=== PATIENT | female | born 1945 | race Caucasian/White ===

== ENCOUNTER 2022-06-06 14:37 | Inpatient (IN) | payer MEDICARE ==
[~2022-06-06 14:37] MED LIST: Iopamidol 370 76% 100 ML VIAL ONE
[2022-06-06 15:18] LABS: #Eosinphils 0.1 10x3/uL (0.0-0.5); #Monocytes 0.5 10x3/uL (0.0-1.1); #Neutrophils 5.8 10x3/uL (1.5-8.4); %Basophils 0.3 % (0.0-2.0); %Eosinophils 0.7 % (0.0-6.0); %Monocytes 6.5 % (0.0-10.0); %Neutrophils 79.1 % (40.0-75.0); Hemoglobin 11.4 g/dL (12.0-15.5); Mean Corpuscular HGB CONC 32.1 g/dL (32.0-36.0); Mean Corpuscular Hemoglobin 30.8 pg (27.0-33.0); Mean Corpuscular Volume 95.9 fl (81.6-98.3); Mean Platelet Volume 10.8 fl (7.4-10.4); Platelet Count 247 10x3/uL (150-450); RBC Distribution Width 14.9 % (11.5-14.5); White Blood Cell (WBC) Count 7.4 10x3/uL (3.5-10.5)
[2022-06-06 15:36] LABS: ALT (SGPT) 16 U/L (8-55); AST (SGOT) 29 U/L (5-34); Albumin 4.4 g/dL (3.4-4.8); Alkaline Phosphatase 108 U/L (40-110); Anion Gap 16 mmol/L (10-20); BUN (Urea Nitrogen) 23 mg/dL (9.8-20.1); Bilirubin, Total 0.2 mg/dL (0.2-1.2); Calc. Creatinine Clearance 0 mL/min (70-130); Calcium 9.2 mg/dL (7.8-10.44); Carbon Dioxide 24 mmol/L (23-31); Chloride 105 mmol/L (98-107); Estimated GFR 34; Globulin 3.4 g/dL (2.4-3.5); Glucose 118 mg/dL (83-110); Potassium 4.5 mmol/L (3.5-5.1); Protein, Total 7.8 g/dL (5.8-8.1); Sodium 140 mmol/L (136-145)
[2022-06-06 15:59] LABS: CKMB 0.9 ng/mL (0-6.6)
[2022-06-06] MEDS ORDERED: Aspirin Chewable 81 MG TAB ONE (17:20)
[2022-06-06] MEDS ORDERED: Acetaminophen 325 MG TAB ONE (20:04)
[2022-06-06] MEDS ORDERED: Calcium Carbonate 500 MG ChewTAB PO PRN (20:51)
[2022-06-06] MEDS ORDERED: Guaifenesin DM 100-10/5 ML UDCUP PO PRN (20:51)
[2022-06-06] MEDS ORDERED: Senokot S 8.6-50 MG TAB PO PRN (20:51)
[2022-06-06] MEDS ORDERED: Ondansetron PF 4 MG/2 ML Vial IVP PRN (20:51)
[2022-06-06] MEDS ORDERED: Piperacillin/Tazobactam 3.375 GM in Sodium Chloride 0.9% 100 ML IVPB SCH (21:00)
[2022-06-06 21:15] LABS: SARS-CoV-2 NAA Rapid Test Not Detected (NotDetected)
[2022-06-06 21:32] LABS: Bilirubin Neg (Negative); Blood, Urine 10 (Negative); Clarity Clear (Clear); Glucose, Urine (Dipstick) Normal (Negative); Ketone, Urine Negative (Negative); Leukocyte Negative (Negative); Nitrite Negative (Negative); Protein, Urine (Dipstick) 30 mg/dl (Neg-Trace); Specific Gravity, Urine 1.015 (1.005-1.030); Urobilinogen Normal mg/dL (Less than 2)
[2022-06-06 21:42] LABS: Bacteria/HPF None Seen HPF (None Seen); RBC/HPF None Seen HPF (0-3); Squamous Epithelial 0-3 HPF (0-3); WBC/HPF 0-3 HPF (0-3)
[2022-06-06 22:39] VITALS: BMI 33.8
[2022-06-06 22:46] LABS: CKMB 0.8 ng/mL (0-6.6)
[2022-06-06] MEDS ORDERED: Lactated Ringer's 1,000 ML IV SCH (23:00)
[2022-06-06] MEDS ORDERED: Meropenem 1 GM in Sodium Chloride 0.9% 100 ML IVPB SCH (23:59)
[2022-06-07] MEDS: Meropenem 500 MG in Sodium Chloride 0.9% 100 ML IVPB SCH (01:32)
[2022-06-07 04:57] LABS: Anion Gap 15 mmol/L (10-20); BUN (Urea Nitrogen) 24 mg/dL (9.8-20.1); Calc. Creatinine Clearance 44 mL/min (70-130); Calcium 8.9 mg/dL (7.8-10.44); Carbon Dioxide 24 mmol/L (23-31); Cardiac Risk 2.9 (Less than 4.5); Chloride 104 mmol/L (98-107); Cholesterol 155 mg/dl (< 200 Desired); Estimated GFR 38; Glucose 110 mg/dL (83-110); HDL Cholesterol 53 mg/dL (>60 Neg Risk); LDL Cholesterol, Calculated 89 mg/dL; Potassium 4.3 mmol/L (3.5-5.1); Sodium 139 mmol/L (136-145); Triglycerides 67 mg/dL (Less than 150)
[2022-06-07 05:12] LABS: #Eosinphils 0.1 10x3/uL (0.0-0.5); #Monocytes 0.7 10x3/uL (0.0-1.1); %Basophils 0.1 % (0.0-2.0); %Eosinophils 0.8 % (0.0-6.0); %Lymphocytes 14.3 % (18.0-47.0); %Monocytes 8.3 % (0.0-10.0); %Neutrophils 76.1 % (40.0-75.0); Hemoglobin 10.4 g/dL (12.0-15.5); Mean Corpuscular HGB CONC 31.2 g/dL (32.0-36.0); Mean Corpuscular Hemoglobin 30.1 pg (27.0-33.0); Mean Corpuscular Volume 96.5 fl (81.6-98.3); Mean Platelet Volume 11.1 fl (7.4-10.4); Platelet Count 222 10x3/uL (150-450); Red Blood Cell (RBC) Count 3.45 10x6/uL (3.90-5.03); White Blood Cell (WBC) Count 7.8 10x3/uL (3.5-10.5)
[2022-06-07 05:14] LABS: CKMB 1.3 ng/mL (0-6.6)
[2022-06-07] MEDS ORDERED: Meropenem 500 MG in Sodium Chloride 0.9% 100 ML IVPB SCH (08:00)
[2022-06-07] MEDS ORDERED: Aspirin 81 mg Enteric Coated Tablet PO SCH ×2 (09:00)
[2022-06-07] MEDS: Clopidogrel Bisulfate 75 MG TAB PO SCH (09:55)
[2022-06-07] MEDS: Enoxaparin Sodium 40 MG/0.4 ML SYRINGE SC SCH (09:55)
[2022-06-07] MEDS: Amiodarone 200 MG TAB PO SCH (09:55)
[2022-06-07] MEDS: Allopurinol 100 MG TAB PO SCH ×2 (09:58→21:06)
[2022-06-07] MEDS: Famotidine/PF 20 mg/2ml Vial SLOW IVP SCH (09:59)
[2022-06-07] MEDS ORDERED: Azithromycin 250 MG TAB PO SCH (11:45)
[2022-06-07] MEDS: Benzonatate 100 MG CAP PO SCH ×3 (12:23→18:39)
[2022-06-07 12:50] LABS: Hemoglobin A1c 5.7 % (4.0-6.0)
[2022-06-07] MEDS ORDERED: diphenhydrAMINE 25 MG CAP PO SCH (13:00)
[2022-06-07] MEDS: hydrALAZINE 25 MG TAB PO SCH (21:01)
[2022-06-07] MEDS: PARoxetine 20 MG TAB PO SCH (21:01)
[2022-06-07] MEDS: Acetaminophen 325 MG TAB PO PRN (21:01)
[2022-06-08] MEDS: Benzonatate 100 MG CAP PO SCH (02:13)
[2022-06-08] MEDS: Levothyroxine Sodium 50 MCG TAB PO SCH (05:40)
[2022-06-08] MEDS ORDERED: Azithromycin 250 MG TAB PO SCH (09:00)
[2022-06-08] MEDS: hydrALAZINE 25 MG TAB PO SCH ×3 (09:03→21:24)
[2022-06-08] MEDS: Clopidogrel Bisulfate 75 MG TAB PO SCH (09:03)
[2022-06-08] MEDS: Enoxaparin Sodium 40 MG/0.4 ML SYRINGE SC SCH (09:04)
[2022-06-08] MEDS: Amiodarone 200 MG TAB PO SCH (09:04)
[2022-06-08] MEDS: Allopurinol 100 MG TAB PO SCH ×2 (09:04→21:28)
[2022-06-08] MEDS: Famotidine/PF 20 mg/2ml Vial SLOW IVP SCH (09:13)
[2022-06-08] MEDS: Acetaminophen 325 MG TAB PO PRN ×2 (14:39→21:28)
[2022-06-08] MEDS: Gabapentin 300 MG CAP PO SCH (21:23)
[2022-06-08] MEDS: PARoxetine 20 MG TAB PO SCH (21:24)
[2022-06-09] MEDS: Acetaminophen 325 MG TAB PO PRN ×3 (01:48→21:10)
[2022-06-09] MEDS: Levothyroxine Sodium 50 MCG TAB PO SCH (06:17)
[2022-06-09] MEDS: hydrALAZINE 25 MG TAB PO SCH ×3 (09:10→21:07)
[2022-06-09] MEDS: Enoxaparin Sodium 40 MG/0.4 ML SYRINGE SC SCH (09:10)
[2022-06-09] MEDS: Gabapentin 100 MG CAP PO SCH (09:11)
[2022-06-09] MEDS: Allopurinol 100 MG TAB PO SCH ×2 (09:12→21:10)
[2022-06-09] MEDS: Clopidogrel Bisulfate 75 MG TAB PO SCH (09:12)
[2022-06-09] MEDS: Amiodarone 200 MG TAB PO SCH (09:12)
[2022-06-09] MEDS: Famotidine/PF 20 mg/2ml Vial SLOW IVP SCH (09:23)
[2022-06-09] MEDS: Gabapentin 300 MG CAP PO SCH (21:06)
[2022-06-09] MEDS: PARoxetine 20 MG TAB PO SCH (21:10)
[2022-06-10 05:42] LABS: Hemoglobin 9.3 g/dL (12.0-15.5); Mean Corpuscular HGB CONC 31.6 g/dL (32.0-36.0); Mean Corpuscular Hemoglobin 30.6 pg (27.0-33.0); Mean Corpuscular Volume 96.7 fl (81.6-98.3); Mean Platelet Volume 11.3 fl (7.4-10.4); Platelet Count 230 10x3/uL (150-450); RBC Distribution Width 14.6 % (11.5-14.5); Red Blood Cell (RBC) Count 3.04 10x6/uL (3.90-5.03); White Blood Cell (WBC) Count 5.8 10x3/uL (3.5-10.5)
[2022-06-10 05:52] LABS: Anion Gap 13 mmol/L (10-20); BUN (Urea Nitrogen) 28 mg/dL (9.8-20.1); Calc. Creatinine Clearance 53 mL/min (70-130); Calcium 9.1 mg/dL (7.8-10.44); Carbon Dioxide 26 mmol/L (23-31); Chloride 109 mmol/L (98-107); Estimated GFR 48; Glucose 92 mg/dL (83-110); Potassium 4.6 mmol/L (3.5-5.1); Sodium 143 mmol/L (136-145)
[2022-06-10] MEDS: Levothyroxine Sodium 50 MCG TAB PO SCH (06:11)
[2022-06-10] MEDS: hydrALAZINE 25 MG TAB PO SCH ×3 (09:03→21:06)
[2022-06-10] MEDS: Clopidogrel Bisulfate 75 MG TAB PO SCH (09:04)
[2022-06-10] MEDS: Allopurinol 100 MG TAB PO SCH ×2 (09:04→21:06)
[2022-06-10] MEDS: Amiodarone 200 MG TAB PO SCH (09:04)
[2022-06-10] MEDS: Enoxaparin Sodium 40 MG/0.4 ML SYRINGE SC SCH (09:05)
[2022-06-10] MEDS: Gabapentin 100 MG CAP PO SCH (09:06)
[2022-06-10] MEDS: Famotidine/PF 20 mg/2ml Vial SLOW IVP SCH (09:12)
[2022-06-10] MEDS: Acetaminophen 325 MG TAB PO PRN ×2 (13:06→18:27)
[2022-06-10] MEDS: PARoxetine 20 MG TAB PO SCH (21:05)
[2022-06-10] MEDS: Gabapentin 300 MG CAP PO SCH (21:05)
[2022-06-11] MEDS: Levothyroxine Sodium 50 MCG TAB PO SCH (05:29)
[2022-06-11] MEDS: Clopidogrel Bisulfate 75 MG TAB PO SCH (10:51)
[2022-06-11] MEDS: Enoxaparin Sodium 40 MG/0.4 ML SYRINGE SC SCH (10:51)
[2022-06-11] MEDS: Gabapentin 100 MG CAP PO SCH (10:51)
[2022-06-11] MEDS: hydrALAZINE 25 MG TAB PO SCH ×3 (10:51→22:14)
[2022-06-11] MEDS: Amiodarone 200 MG TAB PO SCH (10:51)
[2022-06-11] MEDS: Allopurinol 100 MG TAB PO SCH ×2 (10:52→22:15)
[2022-06-11] MEDS: Famotidine/PF 20 mg/2ml Vial SLOW IVP SCH (20:04)
[2022-06-11] MEDS ORDERED: diphenhydrAMINE 50 MG/ML VIAL IVP PRN (20:14)
[2022-06-11] MEDS ORDERED: methylPREDNISolone Sod Succ 40 MG VIAL IVP PRN (20:14)
[2022-06-11] MEDS ORDERED: Famotidine/PF 20 mg/2ml Vial SLOW IVP PRN (20:16)
[2022-06-11] MEDS ORDERED: Doxycycline 100 MG in Sodium Chloride 0.9% 100 ML IVPB SCH (21:00)
[2022-06-11] MEDS ORDERED: Cefdinir 300 MG CAP PO SCH (21:00)
[2022-06-11] MEDS: Gabapentin 300 MG CAP PO SCH (22:14)
[2022-06-11] MEDS: PARoxetine 20 MG TAB PO SCH (22:15)
[2022-06-12 05:46] LABS: #Eosinphils 0.3 10x3/uL (0.0-0.5); #Monocytes 0.5 10x3/uL (0.0-1.1); #Neutrophils 3.9 10x3/uL (1.5-8.4); %Basophils 0.3 % (0.0-2.0); %Eosinophils 3.9 % (0.0-6.0); %Lymphocytes 28.8 % (18.0-47.0); %Neutrophils 59.2 % (40.0-75.0); Mean Corpuscular HGB CONC 31.7 g/dL (32.0-36.0); Mean Corpuscular Hemoglobin 30.8 pg (27.0-33.0); Mean Corpuscular Volume 97.3 fl (81.6-98.3); Mean Platelet Volume 10.7 fl (7.4-10.4); Platelet Count 260 10x3/uL (150-450); RBC Distribution Width 14.5 % (11.5-14.5); Red Blood Cell (RBC) Count 2.92 10x6/uL (3.90-5.03); White Blood Cell (WBC) Count 6.6 10x3/uL (3.5-10.5)
[2022-06-12 05:57] LABS: ALT (SGPT) 20 U/L (8-55); AST (SGOT) 24 U/L (5-34); Albumin 3.5 g/dL (3.4-4.8); Alkaline Phosphatase 81 U/L (40-110); Anion Gap 13 mmol/L (10-20); BUN (Urea Nitrogen) 30 mg/dL (9.8-20.1); Bilirubin, Total 0.3 mg/dL (0.2-1.2); Calc. Creatinine Clearance 46 mL/min (70-130); Calcium 9.2 mg/dL (7.8-10.44); Carbon Dioxide 25 mmol/L (23-31); Chloride 106 mmol/L (98-107); Estimated GFR 40; Globulin 3.3 g/dL (2.4-3.5); Glucose 98 mg/dL (83-110); Potassium 4.4 mmol/L (3.5-5.1); Protein, Total 6.8 g/dL (5.8-8.1); Sodium 140 mmol/L (136-145)
[2022-06-12] MEDS: Levothyroxine Sodium 50 MCG TAB PO SCH (06:00)
[2022-06-12] MEDS: Enoxaparin Sodium 40 MG/0.4 ML SYRINGE SC SCH (10:24)
[2022-06-12] MEDS: Gabapentin 100 MG CAP PO SCH (10:24)
[2022-06-12] MEDS: Cefdinir 300 MG CAP PO SCH ×2 (10:25→21:17)
[2022-06-12] MEDS: Amiodarone 200 MG TAB PO SCH (10:25)
[2022-06-12] MEDS: Clopidogrel Bisulfate 75 MG TAB PO SCH (10:25)
[2022-06-12] MEDS: Allopurinol 100 MG TAB PO SCH ×2 (10:25→21:17)
[2022-06-12] MEDS: hydrALAZINE 25 MG TAB PO SCH ×4 (10:26→21:18)
[2022-06-12] MEDS: Famotidine/PF 20 mg/2ml Vial SLOW IVP SCH (10:39)
[2022-06-12] MEDS: Acetaminophen 325 MG TAB PO PRN (16:22)
[2022-06-12] MEDS: PARoxetine 20 MG TAB PO SCH (21:19)
[2022-06-12] MEDS: Gabapentin 300 MG CAP PO SCH (21:19)
[2022-06-13 04:07] LABS: #Eosinphils 0.2 10x3/uL (0.0-0.5); #Monocytes 0.6 10x3/uL (0.0-1.1); #Neutrophils 3.9 10x3/uL (1.5-8.4); %Basophils 0.3 % (0.0-2.0); %Eosinophils 3.6 % (0.0-6.0); %Monocytes 8.5 % (0.0-10.0); %Neutrophils 57.6 % (40.0-75.0); Hemoglobin 8.7 g/dL (12.0-15.5); Mean Corpuscular HGB CONC 31.9 g/dL (32.0-36.0); Mean Corpuscular Hemoglobin 30.6 pg (27.0-33.0); Mean Corpuscular Volume 96.1 fl (81.6-98.3); Mean Platelet Volume 10.3 fl (7.4-10.4); Platelet Count 256 10x3/uL (150-450); RBC Distribution Width 14.4 % (11.5-14.5); Red Blood Cell (RBC) Count 2.84 10x6/uL (3.90-5.03); White Blood Cell (WBC) Count 6.7 10x3/uL (3.5-10.5)
[2022-06-13 04:17] LABS: ALT (SGPT) 25 U/L (8-55); AST (SGOT) 30 U/L (5-34); Albumin 3.5 g/dL (3.4-4.8); Alkaline Phosphatase 81 U/L (40-110); Anion Gap 15 mmol/L (10-20); BUN (Urea Nitrogen) 35 mg/dL (9.8-20.1); Bilirubin, Total 0.3 mg/dL (0.2-1.2); Calc. Creatinine Clearance 42 mL/min (70-130); Calcium 9.1 mg/dL (7.8-10.44); Carbon Dioxide 24 mmol/L (23-31); Chloride 108 mmol/L (98-107); Estimated GFR 36; Globulin 2.7 g/dL (2.4-3.5); Glucose 98 mg/dL (83-110); Potassium 4.8 mmol/L (3.5-5.1); Protein, Total 6.2 g/dL (5.8-8.1); Sodium 142 mmol/L (136-145)
[2022-06-13] MEDS: Levothyroxine Sodium 50 MCG TAB PO SCH (05:30)
[2022-06-13] MEDS: Clopidogrel Bisulfate 75 MG TAB PO SCH (09:26)
[2022-06-13] MEDS: hydrALAZINE 25 MG TAB PO SCH ×3 (09:26→21:09)
[2022-06-13] MEDS: Gabapentin 100 MG CAP PO SCH (09:27)
[2022-06-13] MEDS: Enoxaparin Sodium 40 MG/0.4 ML SYRINGE SC SCH (09:28)
[2022-06-13] MEDS: Allopurinol 100 MG TAB PO SCH (09:28)
[2022-06-13] MEDS: Amiodarone 200 MG TAB PO SCH (09:28)
[2022-06-13] MEDS: Cefdinir 300 MG CAP PO SCH ×2 (09:29→21:11)
[2022-06-13] MEDS: Famotidine/PF 20 mg/2ml Vial SLOW IVP SCH (09:29)
[2022-06-13] MEDS: PARoxetine 20 MG TAB PO SCH (21:10)
[2022-06-13] MEDS: Gabapentin 300 MG CAP PO SCH (21:11)
[2022-06-14 04:13] LABS: ALT (SGPT) 30 U/L (8-55); AST (SGOT) 30 U/L (5-34); Albumin 3.6 g/dL (3.4-4.8); Alkaline Phosphatase 80 U/L (40-110); Anion Gap 15 mmol/L (10-20); BUN (Urea Nitrogen) 41 mg/dL (9.8-20.1); Bilirubin, Total 0.2 mg/dL (0.2-1.2); Calc. Creatinine Clearance 41 mL/min (70-130); Carbon Dioxide 24 mmol/L (23-31); Chloride 106 mmol/L (98-107); Estimated GFR 35; Globulin 3.1 g/dL (2.4-3.5); Glucose 107 mg/dL (83-110); Potassium 4.7 mmol/L (3.5-5.1); Protein, Total 6.7 g/dL (5.8-8.1); Sodium 140 mmol/L (136-145)
[2022-06-14 04:58] LABS: #Eosinphils 0.2 10x3/uL (0.0-0.5); #Monocytes 0.7 10x3/uL (0.0-1.1); #Neutrophils 6.1 10x3/uL (1.5-8.4); %Basophils 0.3 % (0.0-2.0); %Eosinophils 2.5 % (0.0-6.0); %Lymphocytes 20.4 % (18.0-47.0); %Monocytes 8.2 % (0.0-10.0); %Neutrophils 67.7 % (40.0-75.0); Hemoglobin 8.7 g/dL (12.0-15.5); Mean Corpuscular HGB CONC 31.5 g/dL (32.0-36.0); Mean Corpuscular Hemoglobin 30.3 pg (27.0-33.0); Mean Corpuscular Volume 96.2 fl (81.6-98.3); Mean Platelet Volume 10.9 fl (7.4-10.4); Platelet Count 293 10x3/uL (150-450); RBC Distribution Width 14.6 % (11.5-14.5); Red Blood Cell (RBC) Count 2.87 10x6/uL (3.90-5.03); White Blood Cell (WBC) Count 8.9 10x3/uL (3.5-10.5)
[2022-06-14] MEDS: Levothyroxine Sodium 50 MCG TAB PO SCH (06:08)
[2022-06-14] MEDS ORDERED: Furosemide 20 MG TAB PO SCH (09:00)
[2022-06-14] MEDS ORDERED: Allopurinol 100 MG TAB PO SCH (09:00)
[2022-06-14] MEDS ORDERED: Floranex 1 GM Packet PO SCH (09:00)
[2022-06-14] MEDS: Cefdinir 300 MG CAP PO SCH (09:34)
[2022-06-14] MEDS: Clopidogrel Bisulfate 75 MG TAB PO SCH (09:35)
[2022-06-14] MEDS: Amiodarone 200 MG TAB PO SCH (09:36)
[2022-06-14] MEDS: Gabapentin 100 MG CAP PO SCH (09:37)
[2022-06-14] MEDS: Enoxaparin Sodium 40 MG/0.4 ML SYRINGE SC SCH (09:39)
[2022-06-14] MEDS: Famotidine/PF 20 mg/2ml Vial SLOW IVP SCH (10:01)
[2022-06-14 11:48] VITALS: BP 141/60; TEMP 98.6
[2022-06-14] MEDS: hydrALAZINE 25 MG TAB PO SCH (12:21)
== END 2022-06-14 13:45 | disposition home or self-care (01) | DRG 189 ==
LOC: CSHERS 14:37 → CSHTELE 21:19
PROVIDERS: ADMIT Student in an Organized Health Care Education/Training Program; ATTEND Internal Medicine
DX: J96.01 Acute respiratory failure with hypoxia (principal); G93.41 Metabolic encephalopathy; I21.A1 Myocardial infarction type 2; N17.9 Acute kidney failure, unspecified; Z20.822 Contact with and (suspected) exposure to COVID-19; N18.30 Chronic kidney disease, stage 3 unspecified; I12.9 Hypertensive chronic kidney disease with stage 1 through stage 4 chronic kidney disease, or unspecified chronic kidney disease; E11.22 Type 2 diabetes mellitus with diabetic chronic kidney disease; Z66 Do not resuscitate; F03.90 Unspecified dementia, unspecified severity, without behavioral disturbance, psychotic disturbance, mood disturbance, and anxiety; K21.9 Gastro-esophageal reflux disease without esophagitis; M10.9 Gout, unspecified; E86.0 Dehydration; I27.20 Pulmonary hypertension, unspecified; R50.9 Fever, unspecified; R13.10 Dysphagia, unspecified; Z88.0 Allergy status to penicillin; Z88.6 Allergy status to analgesic agent; Z88.8 Allergy status to other drugs, medicaments and biological substances; Z95.0 Presence of cardiac pacemaker; Z88.1 Allergy status to other antibiotic agents; Z79.899 Other long term (current) drug therapy; Z79.890 Hormone replacement therapy; Z79.02 Long term (current) use of antithrombotics/antiplatelets
CPT/HCPCS: 36415; 70496; 70498; 70551; 71045; 80048; 80053; 80061; 81001; 82550; 82553; 83036; 83605; 83880; 84145; 84443; 84484; 85025; 85027; 93005; 93010; 93306; 93880; 94640; 94667; 94668; 94760; J1650; J2185; J3490; J7120; J7620; Q9967; S0028